=== PATIENT | female | born 1935 | race Caucasian/White ===

== ENCOUNTER 2023-01-31 14:58 | Outpatient (CLI) | payer MEDICARE, SELFPAY | END 2023-01-31 14:59 | disposition home or self-care (01) | PROVIDERS: PCP Family Medicine; Visit Provider Family Medicine | DX: M51.36 Other intervertebral disc degeneration, lumbar region (principal); M54.16 Radiculopathy, lumbar region; M53.3 Sacrococcygeal disorders, not elsewhere classified | CPT/HCPCS: 27096; 64483; T1013; J1100; Q9966 ==